=== PATIENT | male | born 1970 | race American Indian/Alaskan Native ===

== ENCOUNTER 2020-10-29 13:28 | Outpatient (CLI) | payer BC, OTHER | END 2020-10-29 15:47 | disposition home or self-care (01) | LOC: INF 13:28 | PROVIDERS: ATTEND Internal Medicine | DX: Z23 Encounter for immunization (principal) | CPT/HCPCS: 96372 ==

== ENCOUNTER 2020-11-22 12:30 | Outpatient (CLI) | payer BC, OTHER | END 2020-11-22 23:59 | disposition home or self-care (01) | LOC: INF 12:30 | PROVIDERS: ATTEND Internal Medicine | DX: Z23 Encounter for immunization (principal) | CPT/HCPCS: 96372 ==

== ENCOUNTER 2022-07-16 14:21 | Emergency (ER) | payer BC ==
[~2022-07-16] VITALS: Ht 177.8 cm; Wt 96.2 kg
[2022-07-16 15:55] VITALS: BP 163/85; TEMP 98
== END 2022-07-16 15:55 | disposition home or self-care (01) ==
LOC: ED 14:21
PROC: 3E1CX8Z Irrigation of Eye using Irrigating Substance (ICD-10-PCS; principal; 2022-07-16)
DX: T15.82XA Foreign body in other and multiple parts of external eye, left eye, initial encounter (principal); S00.252A Superficial foreign body of left eyelid and periocular area, initial encounter; X58.XXXA Exposure to other specified factors, initial encounter; Y93.89 Activity, other specified; Y92.89 Other specified places as the place of occurrence of the external cause
CPT/HCPCS: 99283